=== PATIENT | male | born 1955 | race Caucasian/White ===

== ENCOUNTER → 2017-04-08 | Outpatient (CLI) | payer MEDICARE, OTHER ==
[~2017-04-08] MED LIST: GABA600T2 PO; INSU100C SQ-INSULIN
[2017-04-08 11:24] LABS: BLOOD UREA NITROGEN 21 mg/dL (7-18)
[2017-04-08 11:27] LABS: ASPARTATE AMINO TRANSFERASE 10 U/L (15-37)
== END | disposition home or self-care (01) ==
LOC: STAR 09:59
PROVIDERS: ATTEND Neurological Surgery
DX: Z01.818 Encounter for other preprocedural examination (principal); M96.1 Postlaminectomy syndrome, not elsewhere classified; R79.1 Abnormal coagulation profile
CPT/HCPCS: 36415; 71020; 80053; 85025; 85610; 85730; 93005

== ENCOUNTER 2017-04-19 05:34 | Outpatient (CLI) | payer OTHER ==
[~2017-04-19] VITALS: Ht 180.3 cm; Wt 75.6 kg
[2017-04-19] MEDS ORDERED: LACTATED RINGERS 1,000 ML IV SCH (06:10)
[2017-04-19 06:13] VITALS: BP 116/82
[2017-04-19 06:36] LABS: DAU SCREEN DISCLAIMER
[2017-04-19] MEDS ORDERED: BUPIVACAINE/PF-EPI 0.5% 1:200K ONE (06:52)
[2017-04-19] MEDS ORDERED: BACITRACIN 50,000 UNIT ONE (06:53)
[2017-04-19] MEDS ORDERED: THROMBIN 5,000 UNIT VIAL TP ONE (06:53)
[2017-04-19] MEDS ORDERED: VANCOMYCIN 1,000 MG ONE (11:34)
== END 2017-04-19 07:38 | disposition home or self-care (01) ==
LOC: UNDOADMIN 05:34 → ORIP 05:34 → OR 05:34 → EDSTATUS 07:30 → OR 07:38 → UNDODISIN 07:38
PROVIDERS: ATTEND Neurological Surgery
DX: Z01.818 Encounter for other preprocedural examination (principal); M96.1 Postlaminectomy syndrome, not elsewhere classified; M48.06 Spinal stenosis, lumbar region; M54.16 Radiculopathy, lumbar region; E11.9 Type 2 diabetes mellitus without complications; Z79.899 Other long term (current) drug therapy
CPT/HCPCS: 80307; 82962; J7120; J3370

== ENCOUNTER → 2017-05-11 | Outpatient (CLI) | payer OTHER ==
[~2017-05-11] MED LIST changes: +METF500T4 PO
[2017-05-11 10:48] LABS: DAU SCREEN DISCLAIMER
[2017-05-11 10:59] LABS: HEMATOCRIT 50.4 % (39.2-51.8); HEMOGLOBIN 17.2 g/dL (13.7-18.0); WHITE BLOOD COUNT 8.3 x10^3/uL (3.4-10)
[2017-05-11 11:12] LABS: ASPARTATE AMINO TRANSFERASE 9 U/L (15-37); BLOOD UREA NITROGEN 16 mg/dL (7-18)
== END | disposition home or self-care (01) ==
LOC: STAR 09:18
PROVIDERS: ATTEND Neurological Surgery
DX: Z01.818 Encounter for other preprocedural examination (principal); M96.1 Postlaminectomy syndrome, not elsewhere classified
CPT/HCPCS: 36415; 80053; 80307; 85025

== ENCOUNTER 2017-05-17 09:30 | Inpatient (IN) | payer OTHER ==
[2017-05-11 09:48] VITALS: BP 128/75
[~2017-05-17] VITALS: Ht 180.3 cm; Wt 83.5 kg
[2017-05-17] MEDS ORDERED: BUPIVACAINE/PF 0.5% ONE (10:08)
[2017-05-17] MEDS ORDERED: THROMBIN 5,000 UNIT VIAL TP ONE (10:09)
[2017-05-17] MEDS ORDERED: VANCOMYCIN 500 MG ONE (10:09)
[2017-05-17] MEDS ORDERED: EPINEPHRINE 1 MG/ML, 1ML ONE (10:09)
[2017-05-17] MEDS ORDERED: BACITRACIN 50,000 UNIT ONE (10:09)
[2017-05-17] MEDS ORDERED: LACTATED RINGERS 1,000 ML IV SCH (10:22)
[2017-05-17] MEDS ORDERED: ASPI-496 PO (10:24)
[2017-05-17] MEDS ORDERED: LIDOCAINE 1%, 2ML SQ PRN (10:30)
[2017-05-17] MEDS ORDERED: LIDOCAINE 1%, 2ML ONE (10:40)
[2017-05-17] MEDS ORDERED: INSULIN SINGLE DOSE, ER SQ-INSULIN ONE ×2 (11:10→16:00)
[2017-05-17] MEDS ORDERED: INSULIN REGULAR 100 UNITS/ML, 3ML VIAL SQ-INSULIN ONE (11:30)
[2017-05-17] MEDS ORDERED: HYDROmorphone 2 MG/ML, 1ML ONE ×3 (12:05→14:07)
[2017-05-17] MEDS ORDERED: MIDAZOLAM 1 MG/ML, 2ML ONE (12:05)
[2017-05-17] MEDS ORDERED: ONDANSETRON 2MG/ML, 2ML ONE (12:22)
[2017-05-17] MEDS ORDERED: ROCURONIUM 10 MG/ML ONE (12:22)
[2017-05-17] MEDS ORDERED: PROPOFOL 10 MG/ML, 20ML ONE (12:22)
[2017-05-17] MEDS ORDERED: CEFAZOLIN 1,000 MG ONE (12:22)
[2017-05-17] MEDS ORDERED: METOPROLOL 1 MG/ML, 5ML ONE (12:22)
[2017-05-17] MEDS ORDERED: DEXAMETHASONE 4 MG/ML, 1ML ONE (12:22)
[2017-05-17] MEDS ORDERED: ACETAMINOPHEN 325 MG TABLET PO PRN (15:00)
[2017-05-17] MEDS ORDERED: PROMETHAZINE 25 MG/ML, 1ML IV PRN (15:00)
[2017-05-17] MEDS ORDERED: LABETALOL 5MG/ML, 20ML IV PRN (15:00)
[2017-05-17] MEDS ORDERED: hydrALAzine 20 MG/ML, 1ML IV PRN (15:00)
[2017-05-17] MEDS ORDERED: HYDROmorphone 1 MG/ML, 1ML IV PRN (15:00)
[2017-05-17] MEDS ORDERED: OXYcodone 5 MG/5 ML ORAL.SOL UDC PO PRN (15:00)
[2017-05-17] MEDS ORDERED: ONDANSETRON 2MG/ML, 2ML IVPush PRN (15:00)
[2017-05-17] MEDS ORDERED: MEPERIDINE/PF 25MG/0.5ML IVPush PRN (15:00)
[2017-05-17] MEDS: INSULIN REGULAR 100 UNITS/ML, 3ML VIAL SQ-INSULIN SCH ×2 (16:00→21:27)
[2017-05-17] MEDS ORDERED: FENTANYL PF 100 MCG/2ML ONE (16:15)
[2017-05-17] MEDS: FENTANYL PF 100 MCG/2ML IV PRN ×4 (16:25→17:10)
[2017-05-17 18:15] VITALS: BP 149/79
[2017-05-17] MEDS ORDERED: DIPHENHYDRAMINE 50 MG CAPSULE PO PRN (20:00)
[2017-05-17] MEDS ORDERED: BISACODYL 10 MG SUPP PR PRN (20:00)
[2017-05-17] MEDS ORDERED: ONDANSETRON 2MG/ML, 2ML IV PRN (20:00)
[2017-05-17] MEDS ORDERED: HYDROmorphone 2 MG/ML, 1ML IM PRN (20:00)
[2017-05-17] MEDS: NS + 20MEQ KCL 1,000 ML IV SCH ×2 (20:00→21:34)
[2017-05-17] MEDS ORDERED: MAGNESIUM HYDROXIDE 8%, 30ML UDC PO PRN (20:00)
[2017-05-17] MEDS ORDERED: HYDROcodone/APAP 5/325 TABLET PO PRN (20:00)
[2017-05-17] MEDS ORDERED: DIPHENHYDRAMINE 50 MG/ML, 1ML IVPush PRN (20:00)
[2017-05-17] MEDS ORDERED: PROMETHAZINE 25 MG/ML, 1ML IM PRN (20:00)
[2017-05-17] MEDS ORDERED: ZOLPIDEM 5MG TABLET PO PRN (21:00)
[2017-05-17] MEDS: CEFAZOLIN PMX 1GM/50ML 50 ML IVPB SCH (23:10)
[2017-05-17] MEDS: OXYcodone/APAP 5/325MG TABLET PO PRN (23:10)
[2017-05-18] MEDS: METHOCARBAMOL 750 MG TABLET PO PRN ×3 (00:06→17:16)
[2017-05-18 00:10] VITALS: BP 114/75
[2017-05-18] MEDS: GABAPENTIN 300 MG CAPSULE PO SCH ×6 (00:15→20:35)
[2017-05-18] MEDS: metFORMIN 500 MG TABLET PO SCH ×2 (00:15→20:42)
[2017-05-18 03:04] VITALS: BP 119/71
[2017-05-18] MEDS: OXYcodone/APAP 5/325MG TABLET PO PRN (04:06)
[2017-05-18 05:06] LABS: HEMATOCRIT 42.3 % (39.2-51.8); HEMOGLOBIN 14.4 g/dL (13.7-18.0)
[2017-05-18 05:08] LABS: BLOOD UREA NITROGEN 18 mg/dL (7-18)
[2017-05-18] MEDS: CEFAZOLIN PMX 1GM/50ML 50 ML IVPB SCH (06:25)
[2017-05-18 07:29] VITALS: BP 107/60
[2017-05-18] MEDS: INSULIN REGULAR 100 UNITS/ML, 3ML VIAL SQ-INSULIN SCH ×4 (07:56→20:43)
[2017-05-18] MEDS: SENNA/DOCUSATE TABLET PO SCH (07:57)
[2017-05-18] MEDS ORDERED: OXYcodone/APAP 10/325MG TABLET ONE (08:15)
[2017-05-18] MEDS: OXYcodone/APAP 10/325MG TABLET PO PRN ×4 (08:19→21:26)
[2017-05-18] MEDS ORDERED: OXYcodone/APAP 10/325MG TABLET PO PRN (08:30)
[2017-05-18 14:19] VITALS: BP 114/64
[2017-05-18 19:00] VITALS: BP 111/64
[2017-05-18] MEDS: NS + 20MEQ KCL 1,000 ML IV SCH (20:42)
[2017-05-18] MEDS ORDERED: metFORMIN 500 MG TABLET PO SCH (21:00)
[2017-05-19] MEDS: METHOCARBAMOL 750 MG TABLET PO PRN (01:32)
[2017-05-19] MEDS: OXYcodone/APAP 10/325MG TABLET PO PRN ×4 (01:33→16:13)
[2017-05-19 01:49] VITALS: BP 146/79
[2017-05-19 07:04] VITALS: BP 122/70
[2017-05-19] MEDS: INSULIN REGULAR 100 UNITS/ML, 3ML VIAL SQ-INSULIN SCH ×2 (08:15→12:10)
[2017-05-19] MEDS ORDERED: CYCLOBENZAPRINE 10 MG TABLET PO SCH (09:00)
[2017-05-19] MEDS: SENNA/DOCUSATE TABLET PO SCH (09:24)
[2017-05-19] MEDS: GABAPENTIN 300 MG CAPSULE PO SCH ×2 (09:24)
[2017-05-19 12:46] VITALS: BP 129/91
[2017-05-19] MEDS ORDERED: CYCL-259 PO (16:34)
[2017-05-19] MEDS ORDERED: OXYC-307 PO (16:34)
== END 2017-05-19 16:50 | disposition home or self-care (01) | DRG 460 ==
LOC: ORIP 09:30 → 4NOR 18:00 → DCLOUNGE 05-19 16:25
PROVIDERS: ADMIT Neurological Surgery; ATTEND Neurological Surgery
PROC: 0SB20ZZ Excision of Lumbar Vertebral Disc, Open Approach (ICD-10-PCS; 2017-05-17)
PROC: 01NB0ZZ Release Lumbar Nerve, Open Approach (ICD-10-PCS; 2017-05-17)
PROC: 01NR0ZZ Release Sacral Nerve, Open Approach (ICD-10-PCS; 2017-05-17)
PROC: 0SG0071 Fusion of Lumbar Vertebral Joint with Autologous Tissue Substitute, Posterior Approach, Posterior Column, Open Approach (ICD-10-PCS; principal; 2017-05-17 12:30)
DX: M48.06 Spinal stenosis, lumbar region (principal); M47.26 Other spondylosis with radiculopathy, lumbar region; M47.896 Other spondylosis, lumbar region; M51.16 Intervertebral disc disorders with radiculopathy, lumbar region
CPT/HCPCS: 36415; 72100; 80048; 82962; 85025; C1713; J0171; J0690; J1100; J1170; J1815; J2405; J2704; J3010; J3370; J3480; J3490; J1200; J7120

== ENCOUNTER → 2017-06-14 | Outpatient (CLI) | payer OTHER ==
[~2017-06-14] MED LIST changes: +ASPI-496 PO; +CYCL-259 PO; +OXYC-307 PO
== END | disposition home or self-care (01) ==
LOC: RAD 14:43
PROVIDERS: ATTEND Neurological Surgery
DX: M51.36 Other intervertebral disc degeneration, lumbar region (principal); M47.896 Other spondylosis, lumbar region; Z98.1 Arthrodesis status
CPT/HCPCS: 72100

== ENCOUNTER → 2021-03-04 | Outpatient (CLI) | payer MEDICARE ==
[~2021-03-04] MED LIST changes: -CYCL-259 PO; +CYCL10TA2 PO; -GABA600T2 PO; +GABA600T7 PO; +METF500T17 PO; -METF500T4 PO; +OMNIPAQUE 350 MG/ML, 150 ML BOTTLE ONE; -OXYC-307 PO; +OXYC-380 PO
== END | disposition home or self-care (01) ==
LOC: CFH 10:43
PROVIDERS: ATTEND Surgery
DX: I70.0 Atherosclerosis of aorta (principal); I74.5 Embolism and thrombosis of iliac artery; I70.8 Atherosclerosis of other arteries; I77.1 Stricture of artery
CPT/HCPCS: 75635; 82565; Q9967

== ENCOUNTER 2021-04-17 09:39 | Outpatient (CLI) | payer MEDICARE ==
[~2021-04-17] VITALS: Ht 180.3 cm; Wt 70.6 kg
[~2021-04-17 09:39] MED LIST changes: -OMNIPAQUE 350 MG/ML, 150 ML BOTTLE ONE
[2021-04-17] MEDS ORDERED: INSU100I18 SQ-INSULIN (10:47)
[2021-04-17] MEDS ORDERED: FINA5TAB4 PO (10:49)
[2021-04-17] MEDS ORDERED: TAMS-11 PO (10:49)
[2021-04-17] MEDS ORDERED: SILD25TA9 PO (10:49)
[2021-04-17] MEDS ORDERED: ATOR80TA PO (10:49)
[2021-04-17] MEDS ORDERED: OMEP-110 PO (10:49)
[2021-04-17] MEDS ORDERED: GLIP5TAB10 PO (10:49)
[2021-04-17] MEDS ORDERED: GABA600T7 PO (10:49)
[2021-04-17] MEDS ORDERED: LACTATED RINGERS 1,000 ML IV SCH (11:00)
[2021-04-17 11:24] LABS: BASOPHILS % (AUTO) 0 % (0-1); EOSINOPHILS % (AUTO) 3 % (1-7); LYMPHOCYTES % (AUTO) 23 % (22-44); MEAN CORPUSCULAR HEMOGLOBIN 33.4 pg (27.5-34.5); MEAN CORPUSCULAR HGB CONC 35.3 g/dL (33.2-36.2); MEAN PLATELET VOLUME 7.8 fL (7.4-10.4); MONOCYTES % (AUTO) 7 % (2-9); NEUTROPHILS % (AUTO) 68 % (42-75); PLATELET COUNT 150 x10^3/uL (130-400); RED BLOOD COUNT 5.04 x10^6/uL (4.38-5.82)
[2021-04-17 11:29] LABS: ALANINE AMINOTRANSFERASE 28 U/L (12-78); ALBUMIN 3.8 g/dL (3.4-5.0); ANION GAP 7 mmol/L (5-15); CALCIUM 9.1 mg/dL (8.5-10.1); CHLORIDE 98 mmol/L (98-107); CREATININE 0.99 mg/dL (0.7-1.3)
[2021-04-17 11:31] LABS: ALKALINE PHOSPHATASE 89 U/L (45-117); BILIRUBIN,TOTAL 1.3 mg/dL (0.2-1.0); TOTAL PROTEIN 7.4 g/dL (6.4-8.2)
[2021-04-17] MEDS ORDERED: INSU100V13 SQ-INSULIN (11:33)
[2021-04-17] MEDS ORDERED: ASPI81TA45 PO (11:34)
[2021-04-17 11:42] VITALS: BP 105/62
[2021-04-17] MEDS ORDERED: INSU100V35 SQ-INSULIN (11:50)
[2021-04-17 14:25] VITALS: BP 93/69
[2021-04-17 15:00] VITALS: BP 156/76
[2021-04-18] MEDS ORDERED: CLOP75TA PO (14:41)
== END 2021-04-17 23:59 | disposition home or self-care (01) ==
LOC: STAR 09:39 → OUT 09:39 → 4NE 13:26 → EDSTATUS 14:00 → 4NE 15:50 → ORIP 15:50 → OUT 18:46 → STAR 23:59
PROVIDERS: ATTEND Surgery
DX: Z01.812 Encounter for preprocedural laboratory examination (principal); Z20.822 Contact with and (suspected) exposure to COVID-19; I74.5 Embolism and thrombosis of iliac artery; I70.222 Atherosclerosis of native arteries of extremities with rest pain, left leg; I70.201 Unspecified atherosclerosis of native arteries of extremities, right leg
CPT/HCPCS: 80053; 82962; 85025; 87635

== ENCOUNTER → 2021-05-29 | Outpatient (CLI) | payer MEDICARE ==
[~2021-05-29] MED LIST changes: +ASPI81TA45 PO; +ATOR80TA PO; +CLOP75TA PO; +CLOP75TA52 PO; +FINA5TAB4 PO; +GLIP5TAB10 PO; +INSU100I18 SQ-INSULIN; +INSU100V13 SQ-INSULIN; +INSU100V35 SQ-INSULIN; +OMEP-110 PO; -OXYC-380 PO; +OXYC-501 PO; +SILD25TA9 PO; +TAMS-11 PO
[2021-05-29 11:34] LABS: MICROSCOPIC NOT IND
[2021-05-29 11:34] LABS: BASOPHILS % (AUTO) 1 % (0-1); EOSINOPHILS % (AUTO) 4 % (1-7); LYMPHOCYTES % (AUTO) 30 % (22-44); MEAN CORPUSCULAR HEMOGLOBIN 32.9 pg (27.5-34.5); MEAN CORPUSCULAR HGB CONC 34.6 g/dL (33.2-36.2); MEAN PLATELET VOLUME 7.8 fL (7.4-10.4); MONOCYTES % (AUTO) 9 % (2-9); NEUTROPHILS % (AUTO) 56 % (42-75); PLATELET COUNT 179 x10^3/uL (130-400); RED BLOOD COUNT 4.53 x10^6/uL (4.38-5.82); RED CELL DISTRIBUTION WIDTH 12.8 % (9.4-14.8)
[2021-05-29 11:42] LABS: ALANINE AMINOTRANSFERASE 24 U/L (12-78); ALBUMIN 3.4 g/dL (3.4-5.0); ANION GAP 8 mmol/L (5-15); CALCIUM 8.5 mg/dL (8.5-10.1); CHLORIDE 98 mmol/L (98-107); CREATININE 0.98 mg/dL (0.7-1.3)
[2021-05-29 11:43] LABS: INTERNATIONAL NORMALIZED RATIO 0.99 (0.93-1.1); PROTHROMBIN TIME 10.6 Seconds (9.6-11.5)
[2021-05-29 11:45] LABS: ALKALINE PHOSPHATASE 83 U/L (45-117); BILIRUBIN,TOTAL 0.8 mg/dL (0.2-1.0); TOTAL PROTEIN 6.9 g/dL (6.4-8.2)
== END | disposition home or self-care (01) ==
LOC: STAR 10:23
PROVIDERS: ATTEND Urology
DX: Z01.812 Encounter for preprocedural laboratory examination (principal); Z20.822 Contact with and (suspected) exposure to COVID-19; N40.1 Benign prostatic hyperplasia with lower urinary tract symptoms; Z79.01 Long term (current) use of anticoagulants
CPT/HCPCS: 36415; 80053; 81003; 85025; 85610; 85730; 87086; 87635; 93005